=== PATIENT | male | born 1985 | race African-American/Black ===

== ENCOUNTER 2016-12-28 00:21 | Emergency (ER) | payer SELFPAY ==
[~2016-12-28] VITALS: Ht 172.7 cm; Wt 172.4 kg
[~2016-12-28 00:21] MED LIST: Motrin,Rufen800 MG PO; TOBREX OPHTH S2.5 ML OPH
[2016-12-28] MEDS ORDERED: INDOMETHACIN50 MG PO (00:50)
== END 2016-12-28 01:21 | disposition home or self-care (01) ==
LOC: ED 00:21
DX: M79.674 Pain in right toe(s) (principal)

== ENCOUNTER 2017-03-03 17:12 | Emergency (ER) | payer SELFPAY ==
[~2017-03-03] VITALS: Ht 172.7 cm; Wt 186.0 kg
[~2017-03-03 17:12] MED LIST changes: +INDOMETHACIN50 MG PO
== END 2017-03-03 18:43 | disposition short-term general hospital (02) ==
LOC: ED 17:12
DX: S61.412A Laceration without foreign body of left hand, initial encounter (principal); Z91.040 Latex allergy status; W25.XXXA Contact with sharp glass, initial encounter; Y93.89 Activity, other specified; Y92.9 Unspecified place or not applicable; Y99.9 Unspecified external cause status

== ENCOUNTER 2024-09-20 23:18 | Emergency (ER) | payer OTHER ==
[~2024-09-20] VITALS: Ht 172.7 cm; Wt 195.0 kg
[~2024-09-20 23:18] MED LIST changes: +PREDNISONE20 M1 PO; +TESSALON PERLE100 M1 PO
[2024-09-20 23:56] LABS: BASO % 0.4 % (0.0-1.0); EOS # 0.2 10*3/uL (0.0-0.4); EOS % 2.2 % (1.0-4.0); HEMATOCRIT 47.4 % (42.0-52.0); MEAN CELL VOLUME 93.3 fl (80.0-94.0); MEAN CORPUSCULAR HGB 30.1 pg (27.0-31.0); MEAN CORPUSCULAR HGB CONC 32.3 g/dl (33.0-37.0); MONO # 0.7 10*3/uL (0.1-1.0); MONO % 8.3 % (3.0-9.0); NEUT # 5.3 10*3/uL (2.3-7.9); NEUT % 64.5 % (47.0-73.0); PLATELET COUNT AUTOMATED 293 10*3/uL (130-400); RED BLOOD COUNT 5.08 10*6/uL (4.50-5.90); RED CELL DISTRI WIDTH 12.8 % (0-14.5); WHITE BLOOD COUNT 8.2 10*3/uL (4.8-10.8)
[2024-09-21 00:26] LABS: BUN 15 mg/dl (9-23); CHLORIDE 99 mmol/L (98-107); POTASSIUM 4.1 mmol/L (3.4-5.1)
== END 2024-09-21 00:55 | disposition home or self-care (01) ==
LOC: ED 23:18
PROVIDERS: Internal Medicine
DX: N39.0 Urinary tract infection, site not specified (principal); E11.9 Type 2 diabetes mellitus without complications; I10 Essential (primary) hypertension; Z91.040 Latex allergy status

== ENCOUNTER 2024-09-21 18:31 | Emergency (ER) | payer OTHER ==
[~2024-09-21] VITALS: Ht 172.7 cm; Wt 195.0 kg
[2024-09-21 18:57] LABS: BILIRUBIN 1+ (Negative); BLOOD Negative (Negative); CLARITY Clear (Clear); COLOR Orange (Yellow); GLUCOSE Negative (Negative); KETONE Negative (Negative); LEUKO ESTERASE 1+ (Negative); NITRITE Positive (Negative); PH 5.5 (4.5-8.0)
[2024-09-21 19:11] LABS: BACTERIA 1+; MUCOUS 1+; RBC 0-2 rbc/hpf (0-2)
== END 2024-09-21 19:20 | disposition home or self-care (01) ==
LOC: ED 18:31
PROVIDERS: Physician Assistant Medical
DX: N39.0 Urinary tract infection, site not specified (principal); I10 Essential (primary) hypertension; E78.5 Hyperlipidemia, unspecified; E11.9 Type 2 diabetes mellitus without complications; Z91.040 Latex allergy status

== ENCOUNTER 2025-02-13 23:13 | Emergency (ER) | payer OTHER ==
[~2025-02-13] VITALS: Ht 172.7 cm; Wt 190.5 kg
[2025-02-13] MEDS ORDERED: ZESTRIL10 MG PO (23:26)
[2025-02-13] MEDS ORDERED: LASIX20 MG PO (23:27)
[2025-02-13] MEDS ORDERED: LIPITOR10 MG PO (23:27)
[2025-02-13] MEDS ORDERED: BUPROPION75 MG PO (23:27)
[2025-02-13] MEDS ORDERED: METOPROLOL SUCC25 M2 PO (23:27)
[2025-02-13] MEDS ORDERED: VITAMIN D250 MC1 PO (23:28)
[2025-02-13] MEDS ORDERED: NOVOLOG MIX 70/33 ML SC (23:28)
[2025-02-13] MEDS ORDERED: SEPTDS PO (23:54)
[2025-02-13] MEDS ORDERED: Sulfamethoxazole/Trimethopri 1 TAB TAB PO ONE (23:55)
[2025-02-13] MEDS ORDERED: Acetaminophen/Hydrocodone Bi 3 TAB PACK PO PRN (23:55)
== END 2025-02-13 23:56 | disposition home or self-care (01) ==
LOC: ED 23:13
DX: L03.111 Cellulitis of right axilla (principal); L03.115 Cellulitis of right lower limb; I10 Essential (primary) hypertension; E11.9 Type 2 diabetes mellitus without complications; E66.01 Morbid (severe) obesity due to excess calories; Z79.4 Long term (current) use of insulin; Z79.899 Other long term (current) drug therapy; Z91.040 Latex allergy status

== ENCOUNTER 2025-02-17 17:08 | Emergency (ER) | payer OTHER ==
[~2025-02-17] VITALS: Ht 172.7 cm; Wt 181.4 kg
[~2025-02-17 17:08] MED LIST changes: +BUPROPION75 MG PO; +LASIX20 MG PO; +LIPITOR10 MG PO; +METOPROLOL SUCC25 M2 PO; +NOVOLOG MIX 70/33 ML SC; +SEPTDS PO; +VITAMIN D250 MC1 PO; +ZESTRIL10 MG PO
[2025-02-17] MEDS ORDERED: Bacitracin Zinc 14 GM TUBE T ONE (17:55)
[2025-02-17] MEDS ORDERED: VIBRAMYCIN100 MG PO (18:04)
== END 2025-02-17 19:06 | disposition home or self-care (01) ==
LOC: ED 17:08
DX: L02.415 Cutaneous abscess of right lower limb (principal); I10 Essential (primary) hypertension; E11.9 Type 2 diabetes mellitus without complications; Z79.4 Long term (current) use of insulin; Z79.899 Other long term (current) drug therapy; Z91.040 Latex allergy status

== ENCOUNTER 2025-05-26 20:59 | Emergency (ER) | payer OTHER ==
[~2025-05-26] VITALS: Ht 172.7 cm; Wt 181.4 kg
[~2025-05-26 20:59] MED LIST changes: +VIBRAMYCIN100 MG PO
[2025-05-26] MEDS ORDERED: VIBRAMYCIN100 MG PO (21:33)
== END 2025-05-26 21:53 | disposition home or self-care (01) ==
LOC: ED 20:59
DX: L02.214 Cutaneous abscess of groin (principal); E11.9 Type 2 diabetes mellitus without complications; I10 Essential (primary) hypertension; E66.01 Morbid (severe) obesity due to excess calories; Z87.440 Personal history of urinary (tract) infections; Z91.040 Latex allergy status

== ENCOUNTER 2025-06-01 19:02 | Emergency (ER) | payer OTHER ==
[~2025-06-01] VITALS: Wt 181.4 kg
[2025-06-01] MEDS ORDERED: CLINDAMYCIN HC300 MG PO (20:42)
[2025-06-01] MEDS ORDERED: Motrin,Rufen800 MG PO (20:45)
== END 2025-06-01 20:58 | disposition home or self-care (01) ==
LOC: ED 19:02
DX: L02.214 Cutaneous abscess of groin (principal); I10 Essential (primary) hypertension; E11.9 Type 2 diabetes mellitus without complications; E66.01 Morbid (severe) obesity due to excess calories; Z91.040 Latex allergy status; Z91.018 Allergy to other foods